=== PATIENT | male | born 1990 | race Caucasian/White ===

== ENCOUNTER 2024-10-02 14:47 | Emergency (ER) | payer BC, SELFPAY ==
[2024-10-02 14:56] VITALS: BP 156/110
--- NOTE | 2024-10-02 15:55 | ED.GENMED ---
History of Present Illness
General
Chief Complaint: Crisis Evaluation
Source: patient
Exam Limitations: none
Time Seen by Provider: 10/02/24 15:12
History of Present Illness
History of Present Illness:
34yoM with a history of anxiety and depression presenting for crisis evaluation. Patient has been feeling increasing anxiously over the past several weeks. He has been taking Lexapro for about 3 years. He made an appointment with a provider about
a month ago who started to taper him off of Lexapro and started him on Auvelity 3 weeks ago. He has not noticed any improvement with this. He was speaking with a coworker today and he mentioned that he 'did not want to be here anymore.' His
coworker became concerned and called 911. The police escorted him to the ED for evaluation. Patient denies any active plan and has no prior history of suicide attempts. No prior psychiatric admissions. He drinks alcohol socially but denies any
drug use.
Past History
Past History
ED Past Medical History: GERD (Gastritis)
ED Past Surgical History: None
Social History
Tobacco: Non-smoker
Alcohol: Occasional
Personal: Single
Living: with family
Employment: Employed
Family History
Family History: Early CAD (Paternal grandfather in early 50's of [place])
Phy Exam
General Physical Exam
General Presentation: well appearing and no apparent distress
General age: appears stated age
General Skin: warm and dry
General Habitus: normal
General Mental: alert
ENT Exam
ENT Exam: normocephalic
Pulmonary Exam
Pulmonary Exam: no respiratory distress
Neurological Exam
Neurological Exam: alert
[place] Coma Scale
Eye Opening: Spontaneous
Verbal Response: Oriented
Motor Response: Obeys Commands
GCS Total Score: 15
Skin Exam
Skin Exam: normal color and warm/dry
Psychiatric Exam
Psychiatric Exam: other (Admits to feeling anxious. Denies active SI. No signs of psychosis. )
Course
Orders/Labs/Results
Orders:
Orders
10/02/24 15:03
1:1 Observation - Suicide/ Violent Behavior As Directed
Crisis Consult Urgent
Reason for Consult: suicidal ideation
10/02/24 15:55
Lorazepam [Ativan] 1 mg PO NOW STA
10/02/24 14:50
10/02/24 14:50
Vital Signs
Initial and Last Documented VS:
Initial Vital Signs
Temp Pulse Resp BP Pulse Ox
98.0 F 92 18 156/110 100
10/02/24 14:56 10/02/24 14:56 10/02/24 14:56 10/02/24 14:56 10/02/24 14:56
Last Documented Vital Signs
Temp Pulse Resp BP Pulse Ox
98.0 F 92 18 156/110 100
10/02/24 14:56 10/02/24 14:56 10/02/24 15:27 10/02/24 14:56 10/02/24 14:56
MDM/Problems Addressed
Differential Diagnosis Includes:
34yoM here for psychiatric evaluation. Ongoing issues with anxiety/depression and currently going through some medication changes. Was speaking to a coworker today and mentioned that he 'didn't want to be here.' Coworker called 911 and patient came
in with police. Denies any active plan. No prior history of suicide attempts or inpatient treatment.
Initial ED plan: Patient medically cleared. Crisis consult placed.
*Critical Care Note
Total Time (30-74mins, 75-104mins- exclusive of procedures): Not Applicable
Update Note
Update Note:
Patient was evaluated by crisis team. Plan is for patient to enter [facility] program. No grounds for 302 at this time. ED return precautions discussed. Patient in agreement with plan and was discharged in stable condition.
ED Attending Note
-
Portions of this chart may have been created with voice recognition software.� Occasional wrong word or��sound alike� substitutions may have occurred due to the inherent limitations of voice recognition software.
Discharge Plan
Departure
Discharge Problem:
Encounter for psychiatric assessment
Instructions: Anxiety, Adult (DC)
Prescriptions:
No Action
sucralfate [Carafate] 1 GM/10 ML suspension
1 gm PO QIDPRN PRN (Reason: acid reflux, pain with swallow) Qty: 560 0RF
pantoprazole 40 MG tablet,delayed release (DR/EC)
40 mg PO DAILY Qty: 30 0RF
sucralfate [Carafate] 1 GM tablet
1 gm PO QIDPRN PRN (Reason: pain with swallowing, GERD) Qty: 90 0RF
Referrals:
Kvng Strong MD [Family Provider] -
Activity Restrictions/Additional Instructions:
Please follow-up with the outpatient mental health resources provided. Return to the ER with any worsening symptoms or suicidal thoughts.
Interventions
Interventions:
*Risk Screen - Suicide Last Done: 10/02/24 14:56
*General Assessment Last Done: 10/02/24 14:56
*Neglect/Abuse Screening Last Done: 10/02/24 14:56
ED-Psychological Assessment Last Done: 10/02/24 15:27
Discharge Date and Time
Print Language: BELARUSIAN
[2024-10-02] MEDS: ATIVAN 1 MG PO (16:20)
== END 2024-10-02 17:38 | disposition home or self-care (01) ==
LOC: EMR 14:47
PROVIDERS: EMERGENCY PHYSICIAN Emergency Medicine; FAMILY PHYSICIAN Family Medicine
DX: F41.9 Anxiety disorder, unspecified (principal); F32.A Depression, unspecified; Z79.899 Other long term (current) drug therapy; K21.9 Gastro-esophageal reflux disease without esophagitis
CPT/HCPCS: 99283

== ENCOUNTER 2025-02-24 12:58 | Emergency (ER) | payer SELFPAY ==
[2025-02-24 13:02] VITALS: BP 147/99
[2025-02-24 14:15] VITALS: BMI 30.2
[2025-02-24] MEDS: NSS 1000 IV (14:18)
[2025-02-24 14:20] VITALS: BP 122/80
[2025-02-24 14:26] LABS: % Basophils 0.9 % (0-2); % Eosinophils 2.3 % (0-6); % Immature Granulocytes 0.2 % (0-0.5); % Lymphocytes 25.1 % (20.5-51.1); % Monocytes 10.8 % (1.7-9.3); % Neutrophils 60.7 % (42.2-75.2); Absolute Basophils 0.1 10^3/uL (0-0.2); Absolute Eosinophils 0.1 10^3/uL (0-0.7); Absolute Lymphocytes 1.4 10^3/uL (1.2-3.4); Absolute Monocytes 0.6 10^3/uL (0.1-0.6); Absolute Neutrophils 3.4 10^3/uL (1.4-6.5); Hematocrit 45.5 % (39.0-52.0); Hemoglobin 15.5 g/dL (13.0-18.0); Mean Corp Hgb Conc. 34.1 g/dL (33.0-37.0); Mean Corpuscular Hgb 30.9 pg (27.0-31.0); Mean Corpuscular Volume 90.6 fL (80.0-94.0); Mean Platelet Volume 9.3 fL (7.4-10.4); Nucleated Red Blood Cells % 0 % (-); Platelet Count 185 10^3/uL (130-400); Red Blood Cell Count 5.02 10^6/uL (4.70-6.10); Red Cell Dist. Width 13.1 % (11.5-14.5); White Blood Cell Count 5.5 10^3/uL (4.8-10.8)
[2025-02-24 14:46] LABS: ALT (SGPT) 60 U/L (0-50); AST (SGOT) 30 U/L (17-59); Albumin 4.5 g/dl (3.5-5.0); Alkaline Phosphatase 59 U/L (38-126); Blood Urea Nitrogen 15 mg/dl (9-20); Calcium 10.1 mg/dl (8.4-10.2); Carbon Dioxide 29 mmol/L (22-30); Chloride 105 mmol/L (98-107); Estimated Creatinine Clearance 117 ml/min; Glucose 136 mg/dl (70-99); Magnesium 1.9 mg/dl (1.6-2.3); Potassium 3.6 mmol/L (3.5-5.1); Sodium 143 mmol/L (135-145); Total Bilirubin 0.4 mg/dl (0.2-1.3); Total Protein 7.9 g/dl (6.3-8.2); eGFR > 60.00
[2025-02-24 15:00] VITALS: BP 125/100
[2025-02-24 15:16] LABS: TSH Reflex To Free T4 3.31 uIU/ml (0.47-4.68)
[2025-02-24 16:00] VITALS: BP 116/78
--- NOTE | 2025-02-24 16:13 | ED.GENMED ---
History of Present Illness
General
Chief Complaint: Heart Rate Problem
Time Seen by Provider: 02/24/25 13:59
History of Present Illness
History of Present Illness:
Note:
CHIEF COMPLAINT(S)
Palpitations described as a racing heart.
HISTORY OF PRESENT ILLNESS
The patient is a 35-year-old male with a sudden onset of palpitations that began approximately one hour before hospital arrival. The patient reported that his heart felt like it was 'racing,' but denied any associated pounding sensation. He
experienced this without precipitating factors, noting that it occurred while he was sitting. The episode was accompanied by mild shortness of breath and dizziness, to the extent that he felt as if he might pass out. There is some uncertainty if the
symptoms could be anxiety-related, though the patient did not confirm this definitively. The patient states having vomited twice before arriving at the hospital but did not report ongoing gastrointestinal symptoms such as diarrhea. He believes he
typically stays hydrated.
No chest pain reported.
PHYSICAL EXAM
- Cardiovascular: Normal heart rate; no murmurs noted.
- Pulmonary: Lungs clear to auscultation; no pain upon inspiration.
- Extremities: No pain or swelling; no tenderness observed.
Nursing notes reviewed and vital signs reviewed.
PROBLEM LIST
Acute:
- Palpitations with dizziness and mild shortness of breath.
- Recent vomiting episode.
PLAN
- Perform blood tests to investigate underlying causes.
- Monitor the patient using a heart monitor.
- Confirm EKG findings remain stable.
- Evaluate for signs of dehydration and consider intravenous fluids as necessary based on further assessments.
DIFFERENTIAL DIAGNOSIS
The Differential Diagnosis includes, in no particular order and is not limited to:
1. Cardiac arrhythmia.
2. Anxiety or panic disorder.
3. Dehydration or electrolyte imbalance.
4. Hyperthyroidism.
5. Drug or substance use.
6. Vasovagal syncope.
7. Gastroesophageal reflux disease.
8. Anemia.
9. Pulmonary embolism.
10. Acute myocardial infarction.
CARE-UPDATE
02/24/25 - 14:05
Patient was previously seen as a crisis case with a backup involuntary commitment (302) initiated in September 2024.
CARE-UPDATE
02/24/25 - 15:09
Laboratory tests reveal unremarkable CBC and chemistry panels. No dysrhythmia observed during emergency department stay.
CARE-UPDATE
02/24/25 - 15:10
The patients monitoring results, including white blood cell count, hemoglobin levels, and chemistry levels, are normal. Fluids were administered as a precaution, although there is no confirmation of dehydration. Vital signs and oxygen levels are
stable. There is a possibility of supraventricular tachycardia (SVT) as an explanation for previous symptoms, but a diagnosis could not be confirmed without a monitor capture. There are no current abnormalities to diagnose. Discharge is planned,
pending thyroid function test results, which are not anticipated to present any issues. Follow-up will be conducted if needed.
EKG
My independent EKG interpretation is:
- Rhythm: Sinus
- Heart Rate: 90 bpm
- ST Segment: No acute ST abnormality
- Comparison: No significant change from prior EKG on 02/15/21
Disposition:
SUMMARY OF ENCOUNTER
The patient, a 35-year-old male, presented to the emergency department with palpitations described as a racing heart, accompanied by mild shortness of breath and dizziness. These symptoms started suddenly about an hour before his arrival at the "[facility]. The patient reported two episodes of vomiting before arriving but exhibited no other gastrointestinal symptoms. He did not experience chest pain and his physical exam showed normal heart rate and clear lungs. Differential diagnosis
included cardiac arrhythmia, anxiety, dehydration, and other potential causes. Blood tests and monitoring were conducted, with fluids administered as a precaution. The patients vital signs remained stable, and no dysrhythmia was observed during the
stay.
DISPOSITION
Discharge.
PLAN
The patient is to be monitored with a heart monitor and undergo thyroid function tests. Discharge is planned pending these results, with further follow-up recommended if needed.
INDEPENDENT INTERPRETATION OF TESTS
My independent interpretation of CBC and chemistry panels: unremarkable with normal white blood cell count and hemoglobin levels.
My independent EKG interpretation is: Sinus rhythm with a heart rate of 90 bpm; no acute ST abnormality; no significant change from prior EKG on 02/15/21.
MEDICAL DECISION MAKING
Number and Complexity of Problems Addressed: The patient presented with acute concerns of palpitations, dizziness, and recent vomiting. The complexity involved assessing a broad differential diagnosis including potential cardiac, psychological, and
physio-pathological factors.
Data: Appropriate tests, including CBC, chemistry panels, and EKG, were reviewed and factored into clinical decision-making. No significant abnormalities were found. TSH normal.
Risk: Social determinants of health were considered, though specific factors such as substance use or current medication issues were not prevalent in the decision-making. Hospitalization was considered but ultimately not pursued due to stability
upon reassessment.
To the best of my knowledge and according to current medical standards, the patient was provided with care that meets or exceeds the standard of care for their condition.
Past History
Past History
ED Past Medical History: GERD (Gastritis)
ED Past Surgical History: None
Social History
Tobacco: Non-smoker
Alcohol: Occasional
Personal: Single
Living: with family
Employment: Employed
Family History
Family History: Early CAD (Paternal grandfather in early 50's of [place])
Phy Exam
Physical Exam
Physical Exam:
See HPI
Course
Orders/Labs/Results
Orders:
Orders
02/24/25 12:59
EKG [Electrocardiogram (*1)] Urgent
Reason for Study: Palpitations
02/24/25 13:00
EKG- Treatment ONCE
02/24/25 14:03
0.9% Sodium Chloride 1000 ml [Nss] 1,000 ml IV BOLUS
02/24/25 14:15
Complete Blood Count/With Diff Urgent
Comprehensive Metabolic Panel Urgent
Magnesium Urgent
TSH Reflex To Free T4 Urgent
Abnormal Lab Results
02/24/25
14:15
Monocytes % 10.8 H %
(1.7-9.3)
Glucose 136 H mg/dl
(70-99)
ALT 60 H U/L
(0-50)
02/24/25 14:15
02/24/25 14:15
Vital Signs
Initial and Last Documented VS:
Initial Vital Signs
Temp Pulse Resp BP Pulse Ox
37.1 C 105 20 147/99 97
02/24/25 13:02 02/24/25 13:02 02/24/25 13:02 02/24/25 13:02 02/24/25 13:02
Last Documented Vital Signs
Temp Pulse Resp BP Pulse Ox
37.1 C 82 18 122/80 98
02/24/25 13:02 02/24/25 14:20 02/24/25 14:20 02/24/25 14:20 02/24/25 14:20
*Critical Care Note
Total Time (30-74mins, 75-104mins- exclusive of procedures): Not Applicable
ED Attending Note
-
Portions of this chart may have been created with voice recognition software.� Occasional wrong word or��sound alike� substitutions may have occurred due to the inherent limitations of voice recognition software.
Discharge Plan
Departure
Patient Disposition: Home (Routine Discharge)
Date of Disposition: 02/24/25
Time of Disposition: 16:12
Patient with high blood pressure during this ER visit?: Yes
Discharge Problem:
Palpitations
Prescriptions:
No Action
sucralfate [Carafate] 1 GM/10 ML suspension
1 gm PO QIDPRN PRN (Reason: acid reflux, pain with swallow) Qty: 560 0RF
pantoprazole 40 MG tablet,delayed release (DR/EC)
40 mg PO DAILY Qty: 30 0RF
sucralfate [Carafate] 1 GM tablet
1 gm PO QIDPRN PRN (Reason: pain with swallowing, GERD) Qty: 90 0RF
Referrals:
Brian Collier MD [Family Provider, [facility]]
Interventions
Interventions:
*Risk Screen - Suicide Last Done: 02/24/25 13:02
*General Assessment Last Done: 02/24/25 13:02
*Neglect/Abuse Screening Last Done: 02/24/25 13:02
ED- Cardiac Assessment Last Done: 02/24/25 14:21
ED- Pulmonary Assessment Last Done: 02/24/25 14:21
Discharge Date and Time
Print Language: [place]
== END 2025-02-24 16:58 | disposition home or self-care (01) ==
LOC: EMR 12:58
PROVIDERS: EMERGENCY PHYSICIAN Emergency Medicine; FAMILY PHYSICIAN Family Medicine
DX: R00.2 Palpitations (principal); Z82.49 Family history of ischemic heart disease and other diseases of the circulatory system; Z87.19 Personal history of other diseases of the digestive system; K21.9 Gastro-esophageal reflux disease without esophagitis
CPT/HCPCS: 99283; 80053; 83735; 84443; 85025; 93005